=== PATIENT | male | born 1990 | race Hispanic/Latino ===

== ENCOUNTER 2019-03-19 05:57 | Emergency (ER) | payer BC ==
[2019-03-19] MEDS ORDERED: HYDROCODONE/APAP 10/325 TAB ONE (06:37)
[2019-03-19] MEDS ORDERED: DIAZEPAM 5 MG TABLET ONE (06:39)
--- NOTE | 2019-03-19 08:14 | ER ---
Nurse's Notes [facility] Name: Rogelio Sorensen Jr Age: 28 yrs Sex: Male : 1990 Arrival Date: 03/19/2019 Time: 06:05 Bed 7 Private MD: Diagnosis: Strain of muscle and tendon of back wall of thorax Presentation: 03/19 06:18 Presenting complaint: Patient states: I woke up today morning with sudden pain on the rr5 left side of my neck. pain score 10/10. no trauma noted. I just remember yesterday when my child called me i turned my neck fast but it did not hurt that time. Transition of care: patient was not received from another setting of care. Onset of symptoms was March 19, 2019. Risk Assessment: Do you want to hurt yourself or someone else? Patient reports no desire to harm self or others. Initial Sepsis Screen: Does the patient meet any 2 criteria? No. Patient's initial sepsis screen is negative. Does the patient have a suspected source of infection? No. Patient's initial sepsis screen is negative. Care prior to arrival: None. 06:18 Method Of Arrival: Ambulatory rr5 06:18 Acuity: MARICEL 3 rr5 Historical: - Allergies: 06:22 No Known Allergies; rr5 - Home Meds: 06:22 None [Active]; rr5 - PMHx: 06:22 colon cancer; rr5 - PSHx: 06:22 colon surgery; rr5 - Immunization history:: Adult Immunizations up to date. - Social history:: Smoking status: Patient/guardian denies using tobacco, Patient/guardian denies using alcohol, street drugs. - Ebola Screening: : Patient negative for fever greater than or equal to 101.5 degrees Fahrenheit, and additional compatible Ebola Virus Disease symptoms Patient denies exposure to infectious person Patient denies travel to an Ebola-affected area in the 21 days before illness onset. Screenin:22 Abuse screen: Denies threats or abuse. Denies injuries from another. Nutritional rr5 screening: No deficits noted. Tuberculosis screening: No symptoms or risk factors identified. Fall Risk None identified. Total Gomez Fall Scale indicates No Risk (0-24 pts). Assessment: 06:20 General: Appears in no apparent distress. uncomfortable, Behavior is calm, cooperative, rr5 appropriate for age. 06:20 Pain: Complains of pain in left neck Pain does not radiate. Pain currently is 5 out of rr5 10 on a pain scale. Quality of pain is described as aching, Pain began suddenly, Is continuous. Neuro: Level of Consciousness is awake, alert, obeys commands, Oriented to person, place, time, situation, Appropriate for age. Cardiovascular: Capillary refill < 3 seconds Patient's skin is warm and dry. Respiratory: Airway is patent Respiratory effort is Respiratory pattern is regular, symmetrical. GI: No signs and/or symptoms were reported involving the gastrointestinal system. : No signs and/or symptoms were reported regarding the genitourinary system. EENT: No signs and/or symptoms were reported regarding the EENT system. Derm: Skin is intact, Skin temperature is warm. Musculoskeletal: Circulation, motion, and sensation intact. Capillary refill < 3 seconds, Tenderness present in left side of the neck Reports pain in left side of the neck. 06:20 Musculoskeletal: limited movement on the neck area. rr5 07:30 Reassessment: Patient appears in no apparent distress at this time. Patient and/or tw2 family updated on plan of care and expected duration. Pain level reassessed. Patient is alert, oriented x 3, equal unlabored respirations, skin warm/dry/pink. 08:00 Reassessment: Patient is alert, oriented x 3, equal unlabored respirations, skin aa5 warm/dry/pink. Patient states feeling better. PA was notified of improvement of symptoms. . 08:15 Reassessment: Patient appears in no apparent distress at this time. Patient and/or tw2 family updated on plan of care and expected duration. Pain level reassessed. Patient is alert, oriented x 3, equal unlabored respirations, skin warm/dry/pink. Patient states feeling better. Vital Signs: 06:13 BP 132 / 93; Pulse 65; Resp 18; Temp 97.3(TE); Pulse Ox 100% on R/A; Weight 103.87 kg; mw2 Height 5 ft. 10 in. (177.80 cm); 06:40 BP 115 / 80; Pulse 65; Resp 19; Pulse Ox 100% ; Pain 5/10; rr5 07:29 BP 110 / 78; Pulse 64; Resp 17; Pulse Ox 97% on R/A; tw2 06:13 Body Mass Index 32.86 (103.87 kg, 177.80 cm) 2 ED Course: 06:05 Patient arrived in ED. ag3 06:09 Иван Alvarenga PA is PHCP. [facility] 06:09 Yovanny Ocampo MD is Attending Physician. [facility] 06:21 Triage completed. rr5 06:22 Arm band placed on. rr5 06:45 Patient has correct armband on for positive identification. Bed in low position. Side rr5 rails up X2. Pulse ox on. NIBP on. 06:59 Denny Franz, RN is Primary Nurse. tw2 07:00 Report given to denny HUERTA. rr5 08:19 No provider procedures requiring assistance completed. Patient did not have IV access tw2 during this emergency room visit. Administered Medications: 06:41 Drug: [place] 10 mg-325 mg 1 tabs {Note: rass 0.} Route: PO; rr5 08:02 Follow up: Response: No adverse reaction aa5 06:41 Drug: Valium 5 mg Route: PO; rr5 08:02 Follow up: Response: No adverse reaction aa5 Outcome: 08:13 Discharge ordered by . [facility] 08:19 Discharged to home ambulatory. tw2 08:19 Condition: stable 08:19 Discharge instructions given to patient, Instructed on discharge instructions, follow up and referral plans. no drinking with medication, no driving heavy equipment, medication usage, Demonstrated understanding of instructions, follow-up care, medications, Prescriptions given X 1. 08:19 Patient left the ED. tw2 Signatures: Иван Alvarenga PA PA [facility] Chantell Ortega RN RN aa5 Denny Franz, DEANNA RN tw2 Roberto Lou 2 Renee Noriega 3 Jacob Clancy RN RN rr5
--- NOTE | 2019-03-19 08:14 | EDPHYS ---
Physician Documentation [facility] Name: Rogelio Sorensen Jr Age: 28 yrs Sex: Male : 1990 Arrival Date: 03/19/2019 Time: 06:05 Bed 7 Private MD: ED Physician Yovanny Ocampo HPI: 03/19 07:03 This 28 yrs old Male presents to ER via Ambulatory with complaints of Stiff jmm Neck. 07:03 The patient or guardian complains of pain. Onset: The symptoms/episode began/occurred jmm gradually, 1 day(s) ago. Context: The problem was sustained at home. Associated signs and symptoms: Pertinent negatives: fever, numbness, tingling. The pain does not radiate. Modifying factors: The symptoms are alleviated by remaining still, the symptoms are aggravated by movement. This is a 28 year old male with a history of colon cancer that presents to the ED with complaints of left sided neck pain after straining his neck yesterday while performing housework. Denies weakness, denies chest pain. . Historical: - Allergies: 06:22 No Known Allergies; rr5 - Home Meds: 06:22 None [Active]; rr5 - PMHx: 06:22 colon cancer; rr5 - PSHx: 06:22 colon surgery; rr5 - Immunization history:: Adult Immunizations up to date. - Social history:: Smoking status: Patient/guardian denies using tobacco, Patient/guardian denies using alcohol, street drugs. - Ebola Screening: : Patient negative for fever greater than or equal to 101.5 degrees Fahrenheit, and additional compatible Ebola Virus Disease symptoms Patient denies exposure to infectious person Patient denies travel to an Ebola-affected area in the 21 days before illness onset. ROS: 07:03 Constitutional: Negative for fever, chills, and weight loss. jmm 07:03 Cardiovascular: Negative for chest pain, palpitations, and edema, Respiratory: Negative for shortness of breath, cough, wheezing, and pleuritic chest pain, Abdomen/GI: Negative for abdominal pain, nausea, vomiting, diarrhea, and constipation. 07:03 Neck: Positive for pain with movement. 07:03 Back: Positive for pain with movement. 07:03 All other systems are negative. Exam: 07:03 Constitutional: This is a well developed, well nourished patient who is awake, alert, jmm and in no acute distress. Head/Face: atraumatic. Eyes: EOMI, no conjunctival erythema appreciated ENT: Moist Mucus Membranes 07:03 Neck: C-spine: appears grossly normal, ROM/movement: pain, that is mild, with rotation to the left. 07:03 Cardiovascular: Rate: normal, Rhythm: regular. 07:03 Respiratory: the patient does not display signs of respiratory distress, Respirations: normal, Breath sounds: are clear throughout. 07:03 Abdomen/GI: Inspection: abdomen appears normal. 07:03 Back: left trapezius tenderness on palpation. 07:03 Musculoskeletal/extremity: ROM: intact in all extremities. 07:03 Skin: Appearance: Color: normal in color. 07:03 Neuro: Orientation: is normal, Mentation: is normal, Memory: is normal. 07:03 Psych: Behavior/mood is pleasant, cooperative. Vital Signs: 06:13 BP 132 / 93; Pulse 65; Resp 18; Temp 97.3(TE); Pulse Ox 100% on R/A; Weight 103.87 kg; mw2 Height 5 ft. 10 in. (177.80 cm); 06:40 BP 115 / 80; Pulse 65; Resp 19; Pulse Ox 100% ; Pain 5/10; rr5 07:29 BP 110 / 78; Pulse 64; Resp 17; Pulse Ox 97% on R/A; tw2 06:13 Body Mass Index 32.86 (103.87 kg, 177.80 cm) mw2 MDM: 06:30 Patient medically screened. [facility] 08:11 Data reviewed: vital signs, nurses notes. Counseling: I had a detailed discussion with noel the patient and/or guardian regarding: the historical points, exam findings, and any diagnostic results supporting the discharge/admit diagnosis, the need for outpatient follow up, to return to the emergency department if symptoms worsen or persist or if there are any questions or concerns that arise at home. ED course: Pain alleviated in the ED. I do not suspect ACS. Patient advised to follow up with pcp and otherwise given strict return precautions. Patient understood and agrees with the plan of care. . Administered Medications: 06:41 Drug: [place] 10 mg-325 mg 1 tabs {Note: rass 0.} Route: PO; rr5 08:02 Follow up: Response: No adverse reaction aa5 06:41 Drug: Valium 5 mg Route: PO; rr5 08:02 Follow up: Response: No adverse reaction aa5 Disposition: 03/19/19 08:13 Discharged to Home. Impression: Strain of muscle and tendon of back wall of thorax. - Condition is Stable. - Discharge Instructions: Thoracic Strain. - Prescriptions for orphenadrine citrate 100 mg Oral Tablet Sustained Release - take 1 tablet by ORAL route 2 times per day As needed; 20 tablet. - Medication Reconciliation Form, Thank You Letter, Antibiotic Education, Prescription Opioid Use, Work release form form. - Follow up: Private Physician; When: 2 - 3 days; Reason: Recheck today's complaints, Continuance of care, Re-evaluation by your physician. Signatures: Иван Alvarenga PA PA jmm Wise, Tara RN RN tw2 Jacob Clancy RN RN rr5 Chantell Ortega RN aa5 Corrections: (The following items were deleted from the chart) : 08:13 03/19/2019 08:13 Discharged to Home. Impression: Strain of muscle and tendon of tw2 back wall of thorax. Condition is Stable. Forms are Work release form, Medication Reconciliation Form, Thank You Letter, Antibiotic Education, Prescription Opioid Use. Follow up: Private Physician; When: 2 - 3 days; Reason: Recheck today's complaints, Continuance of care, Re-evaluation by your physician. yi
[2019-03-19 08:23] VITALS: TEMP 97.3
[2019-03-19 08:26] VITALS: BP 110/78; O2SAT 97
== END 2019-03-19 08:19 | disposition home or self-care (01) ==
LOC: ER 05:57
DX: S29.012A Strain of muscle and tendon of back wall of thorax, initial encounter (principal); X50.1XXA Overexertion from prolonged static or awkward postures, initial encounter; Y93.89 Activity, other specified; Y92.9 Unspecified place or not applicable; Z85.038 Personal history of other malignant neoplasm of large intestine
CPT/HCPCS: 99283